=== PATIENT | female | born 1980 | race Caucasian/White ===

== ENCOUNTER 2018-03-07 19:43 | Emergency (ER) | payer OTHER, MEDICAID, SELFPAY ==
[2018-03-07 20:00] VITALS: BP 111/83; PULSE 116; RESP 18; TEMP 36.7; O2SAT 99
--- NOTE | 2018-03-07 20:06 | ED.DENTAL ---
HPI - Dental/Oral General Chief complaint: Dental/Oral Stated complaint: DENTAL PAIN Time Seen by Provider: 03/07/18 20:06 Source: patient Mode of arrival: ambulatory Limitations: no limitations History of Present Illness HPI Narrative: 37-year-old female with history of poor dentition, smoker presents with a few days of worsening dental pain and now some swelling around her left lower molars. She denies any foul taste in her mouth. She admits to extensive dental history and is in the process of trying to find a local dentist. She denies fever or chills nor nausea or vomiting. He MD Complaint: tooth pain 1. Onset (ago): day(s) Duration: constant Severity: moderate Relieving factors: nothing Exacerbating factors: chewing, cold and heat Context: history of dental caries Treatment prior to arrival: none Related Data Home Medications Medication Instructions Recorded Confirmed aspirin 650 mg PO QDAY #0 09/16/16 Previous Rx's Medication Instructions Recorded penicillin V potassium 500 mg PO QID 7 Days #28 tab 03/07/18 Allergies Allergy/AdvReac Type Severity Reaction Status Date / Time acetaminophen Allergy Unknown Verified 03/07/18 20:00 [From TYLENOL-CODEINE] codeine Allergy Unknown Verified 03/07/18 20:00 [From TYLENOL-CODEINE] Review of Systems Review of Systems All systems reviewed & are unremarkable except as noted in HPI and below Constitutional Denies chills, Denies fever(s), Denies lethargy and Denies weakness Eyes Denies change in vision, Denies eye discharge, Denies irritation and Denies loss of vision ENT Ears, Nose, Mouth, and Throat: Denies change in voice, Reports dental pain, Reports facial pain, Reports mouth pain, Denies neck pain and Denies sore throat Cardiovascular Denies chest pain, Denies irregular heart rhythm, Denies lightheadedness, Denies palpitations, Denies dyspnea, Denies dyspnea on exertion and Denies orthopnea Respiratory Denies cough, Denies dyspnea, Denies dyspnea on exertion and Denies wheezing Gastrointestinal Gastrointestinal: Denies abdominal pain, Denies change in bowel habits, Denies diarrhea, Denies nausea and Denies vomiting Genitourinary Denies hematuria, Denies flank pain, Denies urinary incontinence and Denies urinary urgency Musculoskeletal Denies neck pain Integumentary/Breasts Denies pruritus, Denies erythema, Denies rash and Denies wounds Neurologic Denies confusion, Denies loss of vision and Denies weakness Psychiatric Denies anxiety, Denies confusion, Denies depression, Denies homicidal ideation and Denies suicidal ideation Endocrine Denies palpitations Hematologic/Lymphatic Denies easy bruising Allergic/Immunologic Denies wheezing COUNT INCLUDES THE [facility] Social History Smoking Status: Current every day smoker Exam Narrative Exam Narrative: GEN: AOx3 and in mild distress, obviously uncomfortable, and nervous EYES: Pupils are equal, round, and reactive to light and accommodation. Extraoccular muscles are intact bilaterally. There is no subconjunctival hemorrhage or exudate. FACE: no obvious facial swelling, warmth, redness DENTAL: poor denition throughout with small amount of fluctuance at base of L lower molar. CHEST: Lungs are clear to auscultation bilaterally and free of wheezes, rales, or rhonchi. Heart rate is regular rhythm, there are no murmurs, clicks, rubs, or gallops. There is no chest wall tenderness. ABD: Abdomen is soft and nontender. There is no guarding or rebound. Bowel sounds are normal in all 4 quadrants. There is no mass or organomegaly. EXT: Full painless ROM of all extremities with no loss of sensation or strength. SKIN: Warm, pink, and dry. No erythema or rash Initial Vital Signs Initial Vital Signs: Vital Signs Temperature 98.1 F 03/07/18 20:00 Pulse Rate 116 H 03/07/18 20:00 Respiratory Rate 18 03/07/18 20:00 Blood Pressure 111/83 03/07/18 20:00 Pulse Oximetry 99 03/07/18 20:00 Course Course Narrative: Topical anesthesia placed on medial aspect to left lower molar. After about 15 min and appropriate analgesia achieved a small neck place with a Coulter blade scalpel which resulted in a small amount of purulent discharge Orders Ordered: Discontinued Medications Penicillin V Potassium (Penicillin Vk 250mg Tab Prepack) 1 bottle MISC SEEINSTR ONE Stop: 03/07/18 21:00 Last Admin: 03/07/18 21:23 Dose: 1 bottle Vital Signs - 8 hr 03/07/18 20:00 03/07/18 21:36 Temperature 98.1 F Pulse Rate 116 H 100 H Respiratory Rate 18 20 Blood Pressure 111/83 121/88 Pulse Oximetry 99 98 Discharge Plan Departure Patient Disposition: Home Clinical Impression: Abscess, dental Discharge Date/Time: 03/07/18 21:20 Interventions: ED Discharge Assessment Last Done: 03/07/18 21:36 Instructions: DI for Dental Pain Activity Restrictions/Additional Instructions: *You have been diagnosed with [ dental pain with abscess ] *What to do: *Take medications as directed *Follow up with your primary care provider in 2-3 days, call for an appointment. Let them know you were seen in the Emergency Department and that we ask that you be seen in follow up *Return to ER if you should have any new, worsening or concerning symptoms, Prescriptions: New penicillin V potassium 500 mg tablet 500 mg PO QID 7 Days Qty: 28 RF: 0 No Action aspirin 325 MG tablet,delayed release (DR/EC) 650 mg PO QDAY Qty: 0 RF: 0
[2018-03-07] MEDS: PENICILLIN 250 MG TAB PREPACK 1 BOTTLE MISC (21:23)
[2018-03-07 21:36] VITALS: BP 121/88; PULSE 100; RESP 20; O2SAT 98
== END 2018-03-07 21:20 | disposition home or self-care (01) ==
PROVIDERS: Emergency Provider Emergency Medicine
DX: K04.7 Periapical abscess without sinus (principal)
CPT/HCPCS: 99282